=== PATIENT | male | born 1955 | race Hispanic/Latino ===

== ENCOUNTER → 2020-03-15 | Outpatient (CLI) | payer OTHER | END | disposition home or self-care (01) | LOC: SHCH 12:32 | PROVIDERS: ATTEND Internal Medicine Cardiovascular Disease | DX: R07.89 Other chest pain (principal) ==

== ENCOUNTER → 2023-10-08 | Outpatient (CLI) | payer OTHER ==
[~2023-10-08] MED LIST: ASPI-1197 PO; ATOR10 PO; CARV3.12 PO; CHOL200059 PO; CLOP-31 PO; EMPA25TA PO; INSLAN SQ; LEVO750T68 PO; LOSA50TA64 PO; METF-446 PO; MULT1CAP17 PO; OMEG-184 PO; RIVA2.5T PO; SERT-439 PO; VITAD50000 PO; [UNRECOGNIZED DRUG - CODE] IV
== END | disposition home or self-care (01) ==
LOC: SHCH 13:15
PROVIDERS: ATTEND Internal Medicine Cardiovascular Disease
DX: I87.2 Venous insufficiency (chronic) (peripheral) (principal); I87.1 Compression of vein; I82.813 Embolism and thrombosis of superficial veins of lower extremities, bilateral; I70.293 Other atherosclerosis of native arteries of extremities, bilateral legs; Z98.890 Other specified postprocedural states
CPT/HCPCS: 93925; 93970

== ENCOUNTER → 2024-09-08 | Outpatient (CLI) | payer OTHER | END | disposition home or self-care (01) | LOC: SHCH 09:04 | PROVIDERS: ATTEND Internal Medicine Cardiovascular Disease | DX: R00.1 Bradycardia, unspecified (principal); I73.9 Peripheral vascular disease, unspecified | CPT/HCPCS: 93306 ==

== ENCOUNTER 2024-09-13 18:47 | Emergency (ER) | payer OTHER ==
[~2024-09-13] VITALS: Ht 162.6 cm; Wt 98.4 kg
--- NOTE | 2024-09-13 18:59 | NUR ---
[facility]
--- NOTE | 2024-09-13 19:33 | NUR ---
[facility]
[2024-09-13] MEDS: ceFAZolin SODIUM 1 GM VIAL IM SCH (20:06)
[2024-09-13] MEDS: teTANUS/diphthERIA TOXOID [ADULT] 0.5 ML VIAL IM ONE (20:08)
--- NOTE | 2024-09-13 20:42 | NUR ---
PER4 [facility] DEP ANIMAL CONTROL WILL NOT FIELD AUDITOR MAYDA FROM SITE BUT DO RECOMEND RABSAADIA VAX FOR WILD ANIMAL BITE PT TO [facility] INFO FOR FOLLOW UP WOUND TO BE CLEANED IRRIGATED AND DRESSED
[2024-09-13] MEDS ORDERED: AMOX1TAB16 PO (20:46)
--- NOTE | 2024-09-13 20:46 | ERN ---
General Chief Complaint: Animal Bite Stated Complaint: PIG BITE TO MY LEFT KNEE Time Seen by MD: 18:49 Time Seen by Midlevel: 18:49 Source: patient History of Present Illness Initial Comments Patient is a 69-year-old male presenting to the emergency department for evaluation following a while pick bite to his left knee. Patient states he [place] in [place] and his dog accidentally ran out the door. When he followed his dog there was some wild bars in his property that ran in his direction. Patient states he was never bitten rather the tasks of the bore impaled him in his left knee. Denies any other injury. Patient states he is not up-to-date with his tetanus vaccination. Allergies: Coded Allergies: No Known Allergies (Unverified Allergy, 11/08/13) Home Meds Active Scripts Amoxicillin/Potassium Clav (Amox Tr-K Clv 875-125 mg Tab) 875 Mg-125 Mg Tablet, 1 EACH PO BID for 10 Days, #20 TAB 0 Refills Prov:ROMÁN SAEZ 09/13/24 Clindamycin in 0.9 % Sod Chlor (Clindamycin 900 mg/50 ml-Ns) 900 Mg/50 Ml Piggyback, 600 MG IV TID for 14 Days, #42 UNIT 0 Refills Prov:TEJINEDR ARANA [facility] 02/27/23 Levofloxacin (Levaquin 750Mg Tabs) 750 Mg Tablet, 750 MG PO DAILY for 14 Days, #14 TAB 0 Refills Prov:TEJINDER ARANA [facility] 02/27/23 Clopidogrel Bisulfate (Plavix) 75 Mg Tablet, 75 MG PO DAILY, #30 TAB 0 Refills Prov:TEJINDER ARANA [facility] 02/27/23 Insulin Glargine,Hum.rec.anlog (Lantus) 100 Units/Ml Inj, 50 UNITS SQ BIDAC, #1 BOX Prov:CHANDA LAI MD 12/09/16 Reported Medications Cholecalciferol (Vitamin D3) 50,000 Units Cap, 5000 UNITS PO DAILY, CAP 02/23/23 Multivits-Minerals/FA/Lycopene (Men's Daily Formula Capsule) 1 Each Capsule, 1 EACH PO DAILY, CAP 02/23/23 Empagliflozin (Jardiance) 25 Mg Tablet, 25 MG PO DAILY, TAB 02/23/23 [place]-3S/Dha/Epa/Fish Oil (Fish Oil 1,200 mg Softgel) 1 Each Capsule, 1 EACH PO BID, CAP 02/23/23 Metformin HCl (Metformin HCl) 1,000 Mg Tablet, 1000 MG PO BID, TAB 02/23/23 Aspirin (Aspirin) 81 Mg Tab.chew, 81 MG PO HS, TAB.CHEW 02/23/23 Rivaroxaban (Xarelto) 2.5 Mg Tablet, 2.5 MG PO BID, TAB 02/23/23 Cholecalciferol (Vitamin D3) (Vitamin D-3) 2,000 Unit Tablet, 1000 UNIT PO DAILY, TAB 12/08/16 Insulin Glargine,Hum.rec.anlog (Lantus) 100 Units/Ml Inj, 50 UNITS SQ HS, ML 12/08/16 Losartan Potassium (Losartan Potassium) 50 Mg Tablet, 50 MG PO DAILY, TAB 12/08/16 Carvedilol (Carvedilol) 3.125 Mg Tablet, 3.125 MG PO BID, TAB 12/08/16 Atorvastatin Calcium (LIPITOR) 20 Mg Tab, 20 MG PO HS, TAB 12/08/16 Sertraline HCl (Sertraline HCl) 50 Mg Tablet, 50 MG PO HS, TAB 12/08/16 Past Medical History Past Medical History: Diabetes-Type II Past Surgical History: CABG ROS Dictation CONSTITUTIONAL: Negative except for HPI HEAD/FACE: Negative except for HPI EENT: Negative except for HPI RESPIRATORY: Negative except for HPI GASTROINTESTINAL/ABDOMINAL: Negative except for HPI GENITOURINARY: Negative except for HPI MUSCULOSKELETAL: Negative except for HPI INTEGUMENTARY: Negative except for HPI NEUROLOGICAL/PSYCH: Negative except for HPI HEMATOLOGIC/LYMPHATIC: Negative except for HPI All Systems Negative, Except as noted above. 13 point review of systems assessed and all negative except for above. Physical Exam Physical Exam Dictation PHYSICAL EXAM: GENERAL: alert,, awake oriented x 3 HEENT: EOMI, Sclera non icteric, moist mucosa NECK: Supple, no JVD, trachea midline LUNGS: Clear breath sounds bilaterally. No wheezes HEART: Regular rate and rhythm. Normal S1 and S2, without murmurs ABD: Abdomen soft, nontender. Bowel sounds present EXT: No clubbing or cyanosis, there are two superficial puncture wounds over the left lateral knee, patient has full range motion of the left knee, there was no tenderness, there was minimal active bleeding but no foreign bodies visualized NEURO: Alert and oriented to person, follows commands MDM MDM: Patient is a 69-year-old male presenting to the emergency department for evaluation following a while pick bite to his left knee. Patient states he lives in a [place] and his dog accidentally ran out the door. When he followed his dog there was some wild bars in his property that ran in his direction. Patient states he was never bitten rather the tasks of the bore impaled him in his left knee. Denies any other injury. Patient states he is not up-to-date with his tetanus vaccination. On physical examination there are two superficial puncture wounds over the left lateral knee, patient has full range motion of the left knee, there was no tenderness, there was minimal active bleeding but no foreign bodies visualized. X-ray of the left knee does not reveal any acute foreign body or fracture. Patient was given a tetanus vaccination in the e mergency department and was given1 g of Ancef. Given that patient was not directly bitten by the world bore and it was more the tasks that he was injured with no needs for rabies vaccination at this time. Puncture wounds were thoroughly irrigated with wound cleanser, normal saline, and iodine. There is a sterile dressing applied over the puncture wound. The puncture wound was not sutured as we need this wound to drain to prevent an abscess formation. This will heal by secondary intention. The patient was started on Augmentin for outpatient management. He was advised to follow up with the PCP in 2-3 days for repeat evaluation or return to the ER for any new or worsening symptoms Differential diagnosis: Animal bite, puncture wound, laceration, There are no social concerns with this patient. Prescription drug management Prescriptions will include: Augmentin Medical management and examination interpretation discussions were had by me with other qualified healthcare professionals as indicated for the patient's care. ED Course Orders Procedure Category Date Status Time Knee 3vws Lt RAD 09/13/24 Resulted 19:02 Tetanus,Diphtheria PHA 09/13/24 Complete Tox [Adult] (Diphther 19:30 Cefazolin Sodium 1 Gm PHA 09/13/24 Complete Vial (Ancef 1 Gm V 19:30 Current Medications Medications (Trade) Dose Ordered Sig/Jarred Route PRN Reason Start Time Stop Time Status Last Admin Dose Admin Cefazolin Sodium (ANCEF 1 gm vial) 1 gm ONCE IM 09/13/24 19:30 09/13/24 21:20 DC 09/13/24 20:06 Tetanus/ Diphtheria Toxoids Adsorbed (DiphthERIA-teTANUS TOXOID [ADULT]/ DECAVAC) 0.5 ml ONCE ONCE IM 09/13/24 19:30 09/13/24 19:31 DC 09/13/24 20:08 Vital Signs Date Time Temp Pulse Resp B/P (MAP) Pulse Ox O2 Delivery O2 Flow Rate FiO2 09/13/24 21:14 98.1 60 20 135/68 98 Room Air* 0 21 09/13/24 19:03 98.2 62 20 135/70 Room Air* 0 21 09/13/24 18:49 97.0 62 20 138/71 99 Room Air 0 [place] [id number] [address] IMAGING REPORT Signed PATIENT: MARLA GIRARD MR#: [id number] : 1955 SEX: M AGE: 69 LOCATION: [facility] ORDER 02 STATUS: DEP ER REPORT#: [id number] SERVICE 01 REASON: WILD BOAR BITE TO LEFT KNEE R/O FX AND FB ORDERING PHYSICIAN: ROMÁN SAEZ PROCEDURE: KNEE 3V LT - KNEE 3VWS LT KNEE 3VWS LT HISTORY: Trauma COMPARISON: None TECHNIQUE: 3 images of left knee were obtained. FINDINGS: There is no acute displaced fracture or dislocation. There is soft tissue swelling. Vascular calcifications are seen. There appears be surgical clips in the posterior aspect of the left knee and clinical correlation is recommended. No other radiopaque foreign body is seen. Degenerative changes are seen. IMPRESSION: 1. Findings as described above. DICTATED BY: ANTOINE ROMAN MD DATE: 09/13/242221 ELECTRONICALLY SIGNED BY: ANTOINE ROMAN MD DATE: 09/13/242224 DX & DISP Disposition: Discharge Departure Impression: Primary Impression: Open wound of left knee due to animal bite Condition: Stable Scripts Amoxicillin/Potassium Clav (Amox Tr-K Clv 875-125 mg Tab) 875 Mg-125 Mg Tablet 1 EACH PO BID for 10 Days, #20 TAB 0 Refills Prov: ROMÁN SAEZ 09/13/24 Referrals: VI ROSA MD (PCP) Time of Disposition: 20:46 I have reviewed the case, and I agree with, Diagnosis and Plan I performed the substantive portion of the visit. I have reviewed and personally made and approve the management plan that is documented in the note by myself or the FELIPE. I acknowledge for responsibility for the patient's management plan. ROMÁN SAEZ Sep 13, 2024 20:46
--- NOTE | 2024-09-13 21:07 | NUR ---
AFTER FURTHER DISCUSSION INJURY RESULT A SWIPING GLANCE FRON TUSK RATHER THAN A BITE ITSELF PER PA INJURY WILL NOT REQUIRE VAXINE AT ALL
--- NOTE | 2024-09-13 21:10 | NUR ---
WOUND IRRIGATED AND CLEANED 4X4 AND GAUZE TO KEEP WOUND CLEAN AMALIA WRAP APPLIED FOR PRESSURE UPPER PUNCTUR HAS MINOR BLEEDING PA INFORMED WOUND CLEANED AND BANDAGED
[2024-09-13 21:14] VITALS: BP 135/68; PULSE 60; RESP 20; TEMP 98.1; O2SAT 98
--- NOTE | 2024-09-13 22:25 | HMCIMG ---
KNEE 3VWS LT HISTORY: Trauma COMPARISON: None TECHNIQUE: 3 images of left knee were obtained. FINDINGS: There is no acute displaced fracture or dislocation. There is soft tissue swelling. Vascular calcifications are seen. There appears be surgical clips in the posterior aspect of the left knee and clinical correlation is recommended. No other radiopaque foreign body is seen. Degenerative changes are seen. IMPRESSION: 1. Findings as described above.
== END 2024-09-13 21:20 | disposition home or self-care (01) ==
LOC: EDH 18:47
DX: S81.052A Open bite, left knee, initial encounter (principal); E11.9 Type 2 diabetes mellitus without complications; Z79.01 Long term (current) use of anticoagulants; Z79.02 Long term (current) use of antithrombotics/antiplatelets; Z79.82 Long term (current) use of aspirin; Z79.84 Long term (current) use of oral hypoglycemic drugs; Z79.899 Other long term (current) drug therapy; Z95.1 Presence of aortocoronary bypass graft; W55.41XA Bitten by pig, initial encounter; Y93.89 Activity, other specified; Y92.89 Other specified places as the place of occurrence of the external cause; Y99.8 Other external cause status
CPT/HCPCS: 99284; 90714; 73562; 96372; 90471; J0690

== ENCOUNTER → 2024-09-22 | Outpatient (CLI) | payer OTHER ==
[~2024-09-22] MED LIST changes: +AMOX1TAB16 PO
--- NOTE | 2024-09-23 13:39 | HMCSR ---
APPROVED REPORT Laterality: Bilateral Indications i65.23 Doppler Spectral Velocity Analysis PSV / EDVPSV / EDV ECA (R) 122 / cm/sECA (L) 101 / cm/s dICA (R) 42 / 13 cm/sdICA (L) 95 / 31 cm/s Mary (R) 56 / 13 cm/smICA (L) 97 / 26 cm/s pICA (R) 85 / 16 cm/spICA (L) 73 / 19 cm/s dCCA (R) 51 / 9 cm/sdCCA (L) 53 / 14 cm/s mCCA (R) 59 / 12 cm/smCCA (L) 62 / 15 cm/s pCCA (R) 44 / 9 cm/spCCA (L) 77 / 12 cm/s Vert (R) 38 / cm/sVert (L) 41 / cm/s Subl. (R) 237 / cm/sSubl. (L) 141 / cm/s ICA/CCA 1.44ICA/CCA 1.26 Technologist Impression Mild heterogenosu calcified plaque noted in the bilateral carotids, without hemodynamic significance. Bilateral vertebral arteries appear antegrade. Right subclavian artery velocities are suggestive of >50% stenosis. Conclusion Minimal plaque noted in the bilateral carotids, without hemodynamic significance. Bilateral vertebral arteries appear antegrade. Conclusion Minimal plaque noted in the bilateral carotids, without hemodynamic significance. Bilateral vertebral arteries appear antegrade.
--- NOTE | 2024-09-23 13:39 | HMCSR ---
APPROVED REPORT Laterality: Bilateral Indications Claudication: , PAD VELOCITY AND DOPPLER WAVEFORM ANALYSIS HELP DESK OPERATOR (R) 115.8cm/sec, Monophasic, HELP DESK OPERATOR (L) 129.8cm/sec, Biphasic, Prof Fem Art. (R) 141.9cm/sec, Monophasic, Prof Fem Art. (L) 88.3cm/sec, Biphasic, Fem Art Prox. (R) 106.5cm/sec, Monophasic, Fem Art Prox. (L) 92.5cm/sec, Biphasic, Fem Art Mid. (R) 91.5cm/sec, Monophasic, Fem Art Mid. (L) 89.1cm/sec, Biphasic, Fem Art Dist (R) 188.9cm/sec, Monophasic, Mild < 50% Fem Art Dist. (L) 94.9cm/sec, Biphasic, Pop Art(AK) (R) 64.6cm/sec, Monophasic, Pop Art (AK) (L) 194.6cm/sec, Biphasic, Mild < 50% Pop Art (Fossa)(R) 67.3cm/sec, Monophasic, Pop Art (Fossa) (L) 79.9cm/sec, Biphasic, Pop Art(BK) (R) 177.3cm/sec, Monophasic, Mild < 50% Pop Art (BK) (L) 89.7cm/sec, Biphasic, SETUP TECHNICIAN Prox. (R) cm/sec, Occluded, Occluded SETUP TECHNICIAN Prox. (L) 29.4cm/sec, Monophasic, SETUP TECHNICIAN Mid. (R) cm/sec, Occluded, Occluded SETUP TECHNICIAN Mid. (L) cm/sec, Occluded, Occluded SETUP TECHNICIAN Dist. (R) cm/sec, Occluded, Occluded SETUP TECHNICIAN Dist. (L) cm/sec, Occluded, Occluded Per Art Prox. (R) 57.9cm/sec, Monophasic, Per Art Prox. (L) 46.5cm/sec, Biphasic, Per Art Mid. (R) 34.3cm/sec, Monophasic, Per Art Mid. (L) 84.8cm/sec, Biphasic, Per Art Dist. (R) cm/sec, Occluded, Occluded Per Art Dist. (L) 63.6cm/sec, Biphasic, ODIN Prox. (R) 69.0cm/sec, Monophasic, ODIN Prox. (L) 90.3cm/sec, Biphasic, ODIN Mid. (R) 109.0cm/sec, Monophasic ODIN Mid. (L) 56.7cm/sec, Biphasic, ODIN Dist. (R) 111.8cm/sec, Monophasic, ODIN Dist. (L) 121.6cm/sec, Biphasic, Technologist Impression Evdience of <50% stenosis in the Right dst SFA/prox Popliteal artery and distal Popliteal arteries. Evidence of <50% stensosis in the Left dst SFA/prox Popliteal artery. Occlusion of the Right SETUP TECHNICIAN and distal Peroneal artery. Occlusion of the Left mid to distal SETUP TECHNICIAN. Conclusion Severe bilateral peripheral arterial disease Clinical correlation recommended Conclusion Severe bilateral peripheral arterial disease Clinical correlation recommended
== END | disposition home or self-care (01) ==
LOC: SHCH 08:57
PROVIDERS: ATTEND Internal Medicine Cardiovascular Disease
DX: I65.23 Occlusion and stenosis of bilateral carotid arteries (principal); I73.9 Peripheral vascular disease, unspecified
CPT/HCPCS: 93880; 93925